=== PATIENT | male | born 1980 ===

== ENCOUNTER 2024-12-17 17:35 | Outpatient (REF) | payer BC, SELFPAY ==
[2024-12-17 20:50] LABS: Hemoglobin A1C 5.4 % (<5.7)
== END 2024-12-17 17:36 | disposition home or self-care (01) ==
LOC: LBN 17:35
PROVIDERS: Visit Provider Nurse Practitioner Family
DX: R73.02 Impaired glucose tolerance (oral) (principal); R73.01 Impaired fasting glucose
CPT/HCPCS: 83036